=== PATIENT | male | born 1995 | race Caucasian/White ===

== ENCOUNTER 2017-02-05 14:14 | Emergency (ER) | payer SELFPAY ==
[2017-02-05 14:48] VITALS: BP 149/80
--- NOTE | 2017-02-05 15:25 | UC ---
Eye Complaint HPI - HPI Summary HPI Summary: The patient comes in today for: 1. Left eye swelling: Onset: One week. Palliative/provocative: Touching the lower eye lid makes the pain worse. Quality: Ache Region: Left lower eye lid. Severity: 5/10 Time: Constant. Associated symptoms: Event: He woke up one morning (about one week ago) and the bottom eye lid was painful. He did not do anything for it at that time. For the following 5 days, it remained red and tender but not particularly swollen. Then one day he woke up and the lower lid was swollen and red. It started to drain today. Previous treatment: He was seen two days ago in the [facility] ER. He was put on erythromycin eye ointment (he states that the tube had a big air bubble in it and hardly ant medication). He has been taking the Bactrim DS pill twice a day. Fevers: None Vision: "Fuzzy." Discharge: Green and yellow. He states that the redness and swelling was not that bad when he was in [facility]. But, it got worse overnight. * - History of Current Complaint Chief Complaint: UCEye Stated Complaint: LT EYE SWEELING/PAIN Time Seen by Provider: 02/05/17 15:05 Hx Obtained From: Patient - Allergies/Home Medications Allergies/Adverse Reactions: Allergies Allergy/AdvReac Type Severity Reaction Status Date / Time No Known Allergies Allergy Verified 02/05/17 14:48 Home Medications: Home Medications NK [No Home Medications Reported] 02/05/17 [History Confirmed 02/05/17] PMH/Surg Hx/FS Hx/Imm Hx Previously Healthy: No Endocrine History Of: Denies: Diabetes, Thyroid Disease, Hyperthyroidism, Hypothyroidism, Dyslipidemia Cardiovascular History Of: Reports: Cardiac Disorders - heart murmur, Hypertension - He states that he went to see a specialist who did not put him on any Rx. Denies: Pacemaker/ICD, Myocardial Infarction, Congestive Heart Failure, Atrial Fibrillation, Deep Vein Thrombosis, Bleeding Disorders Respiratory History Of: Denies: COPD, Asthma, Bronchitis, Pneumonia, Pulmonary Embolism GI/ History Of: Denies: Gastroesophageal Reflux, Ulcer, Gastrointestinal Bleed, Gall Bladder Disease, Kidney Stones, Diverticulitis, Renal Disease, Urosepsis Neurological History Of: Denies: TIA, CVA, Dementia, Seizures, Migraine Psychological History Of: Denies: Anxiety, Depression, Bipolar Disorder, Schizophrenia, Post Traumatic Stress Disorder Cancer History Of: Denies: Lung Cancer, Colorectal Cancer, Breast Cancer, Prostate Cancer, Cervical Cancer Other History Of: Negative For: HIV, Hepatitis B, Hepatitis C, Anticoagulant Therapy - Surgical History Surgical History: None - Family History Known Family History: Positive: Hypertension Negative: Cardiac Disease - Social History Occupation: Employed Full-time Alcohol Use: None Alcohol Amount: once a month Substance Use Type: None Substance Use Comment - Amount & Last Used: 3-4 times weekly Smoking Status (MU): Current Every Day Smoker Type: Cigarettes Amount Used/How Often: 1/3 ppd Length of Time of Smoking/Using Tobacco: 9 years Have You Smoked in the Last Year: Yes Review of Systems Constitutional: Negative Skin: Negative Eyes: Drainage, Eye Redness ENT: Negative Respiratory: Negative Cardiovascular: Negative Gastrointestinal: Negative Genitourinary: Negative All Other Systems Reviewed And Are Negative: Yes Physical Exam Triage Information Reviewed: Yes Appearance: Well-Appearing, No Pain Distress - When his eye lid is not touched. , Obese Vital Signs: Initial Vital Signs Temp 98.5 F 02/05/17 14:46 Pulse 91 02/05/17 14:46 Resp 14 02/05/17 14:46 BP 149/80 02/05/17 14:46 Pulse Ox 98 02/05/17 14:46 Vital Signs Reviewed: Yes Eyes: Positive: Conjunctiva Clear - On the right, left is red, Discharge - From the left eye. There is purulent material matted on the eye lids. There is redness and swelling. When I press on the skin above and below the eye to pull the eye lids apart, he is not able to tolerate this and pulls away. The redness and swelling is limited to the lower eye lid, but touching the non- erythematous and non-swollen skin below the eye is tender. ENT: Positive: Hearing grossly normal. Negative: Pharyngeal erythema, Nasal congestion, Nasal drainage, TM bulging, TM dull, TM red, Tonsillar swelling, Tonsillar exudate Dental: Negative: Gross Decay/Caries @, Dental Fracture @ Neck: Positive: Supple, Nontender, No Lymphadenopathy. Negative: Nuchal Rigidity Respiratory: Positive: Chest non-tender, Lungs clear, No respiratory distress, No accessory muscle use. Negative: Crackles, Wheezing Cardiovascular: Positive: RRR, No Murmur Abdomen Description: Positive: Nontender, No Organomegaly, Soft. Negative: Distended, Guarding Musculoskeletal: Positive: Strength Intact, ROM Intact Neurological: Positive: Alert, Muscle Tone Normal Psychological: Positive: Age Appropriate Behavior, Consolable Skin: Positive: rashes - Left lower eye lid swelling, redness and purulent discharge. Eye Complaint Course/Dx - Course Course Of Treatment: The case was discussed with Dr. Mello's office ( public health microbiologist). He is to go right over. - Differential Dx/Diagnosis Provider Diagnoses: Left hordeolum with spread to lid cellulitis (not responding to Bactrim) Discharge - Discharge Plan Condition: Stable Disposition: HOME Patient Education Materials: Stye (ED), Cellulitis (ED) Forms: *Work Release Referrals: No Primary Care Phys,NOPCP [Primary Care Provider] -
== END 2017-02-05 15:53 | disposition home or self-care (01) ==
LOC: UCCORT 14:14
DX: H00.015 Hordeolum externum left lower eyelid (principal); H00.035 Abscess of left lower eyelid; R01.1 Cardiac murmur, unspecified; I10 Essential (primary) hypertension; E66.9 Obesity, unspecified; F17.210 Nicotine dependence, cigarettes, uncomplicated
CPT/HCPCS: 99212; G0463

== ENCOUNTER 2017-03-03 10:00 | Emergency (ER) | payer OTHER ==
[2017-03-03 10:06] VITALS: BP 162/82
[2017-03-03] MEDS ORDERED: NS 0.9% 1000 ML* 1,000 ML IV ONE (11:04)
--- NOTE | 2017-03-03 11:39 | RAD ---
INDICATION: Cough. Short of breath COMPARISON: None TECHNIQUE: PA and lateral dual-energy views were obtained. FINDINGS: Bones/Soft Tissues: There are no acute bony findings. Cardiomediastinal: The cardiomediastinal silhouette is normal. Lungs: There are no infiltrates. Pleura: There are no pleural effusions. Other: None IMPRESSION: NEGATIVE EXAMINATION.
[2017-03-03 12:48] LABS: Hematocrit 43 % (42-52); Hemoglobin 14.6 g/dl (14.0-18.0); Mean Corpuscular HGB Conc 34 g/dl (31-36); Mean Corpuscular Hemoglobin 29 pg (27-31); Mean Corpuscular Volume 87 fL (80-94); Mean Platelet Volume 9 um3 (7.4-10.4); Red Blood Count 4.96 10^6/ul (4.0-5.4); Red Cell Distribution Width 13 % (10.5-15); White Blood Count 9.5 10^3/ul (3.5-10.8)
[2017-03-03 13:10] LABS: Albumin 4.4 g/dL (3.2-5.2); BUN/Creatinine Ratio 15.5 (8-20); C Reactive Protein 3.95 mg/L (< 5.00); Calcium 9.2 mg/dL (8.6-10.3); EGFR African American 175.3 (>60); EGFR Non-African American 136.3 (>60); Globulin 2.9 g/dL (2-4); Potassium 3.8 mmol/L (3.5-5.0); Total Bilirubin 0.4 mg/dL (0.2-1.0); Total Protein 7.3 g/dL (6.4-8.9)
--- NOTE | 2017-03-03 16:47 | ED ---
Drea Wei Auryana, scribed for Heron Rascon MD on 03/03/17 at 1349 . HPI Cardiac - HPI Summary HPI Summary: 22 year old male presents with blood in sputum since this morning - believes it is bronchitis. He denies fever, chills, chest pain, or any diarrhea. No history of bronchitis. PMHx is significant for a heart murmur but denies any surgeries. SHx is significant for tobacco ad marijuana use but denies any alcohol use. - History of Current Complaint Chief Complaint: EDUpperRespComplaint Stated Complaint: COUGHING UP BLOOD Time Seen by Provider: 03/03/17 11:04 Hx Obtained From: Patient Onset/Duration: Started Hours Ago - THIS MORNING, Still Present Timing: Constant Current Severity: None Pain Intensity: 0 - NO PAIN Pain Scale Used: 0-10 Numeric Associated Signs and Symptoms: Positive: Negative. Negative: Chest Pain, Fever , Chills Related History: Similar Episode/Dx as: - NO HISTORY OF BRONCHITIS - Allergy/Home Medications Allergies/Adverse Reactions: Allergies Allergy/AdvReac Type Severity Reaction Status Date / Time No Known Allergies Allergy Verified 02/05/17 14:48 PMH/Surg Hx/FS Hx/Imm Hx Endocrine/Hematology History: Denies: Hx Anticoagulant Therapy, Hx Diabetes, Hx Thyroid Disease Cardiovascular History: Reports: Hx Hypertension Denies: Hx Congestive Heart Failure, Hx Deep Vein Thrombosis, Hx Myocardial Infarction, Hx Pacemaker/ICD Respiratory History: Denies: Hx Asthma, Hx Chronic Obstructive Pulmonary Disease (COPD), Hx Lung Cancer, Hx Pneumonia, Hx Pulmonary Embolism GI History: Denies: Hx Gall Bladder Disease, Hx Gastrointestinal Bleed, Hx Ulcer, Hx Urosepsis History: Denies: Hx Kidney Stones, Hx Renal Disease Neurological History: Denies: Hx Dementia, Hx Migraine, Hx Seizures, Hx Transient Ischemic Attacks (TIA) Psychiatric History: Denies: Hx Anxiety, Hx Depression, Hx Schizophrenia, Hx Bipolar Disorder Infectious Disease History: No Infectious Disease History: Denies: Hx Clostridium Difficile, Hx Hepatitis, Hx Human Immunodeficiency Virus (HIV), Hx of Known/Suspected MRSA, Hx Shingles, Hx Tuberculosis, Hx Known/ Suspected VRE, Hx Known/Suspected VRSA, History Other Infectious Disease, Traveled Outside the [place] in Last 30 Days - Family History Known Family History: Positive: Hypertension Negative: Cardiac Disease - Social History Alcohol Use: None Alcohol Amount: once a month Substance Use Type: Reports: None Substance Use Comment - Amount & Last Used: 3-4 times weekly Smoking Status (MU): Current Every Day Smoker Type: Cigarettes Amount Used/How Often: 1/3 ppd Length of Time of Smoking/Using Tobacco: 9 years Have You Smoked in the Last Year: Yes Review of Systems Constitutional: Negative Negative: Fever, Chills Eyes: Negative ENT: Negative Cardiovascular: Negative Negative: Chest Pain Positive: Cough - PRODUCTIVE WITH BLOOD Gastrointestinal: Negative Negative: Diarrhea Genitourinary: Negative Musculoskeletal: Negative Skin: Negative Neurological: Negative Psychological: Normal All Other Systems Reviewed And Are Negative: Yes Physical Exam - Summary Physical Exam Summary: VITAL SIGNS: Reviewed. GENERAL: Patient is a well developed and obese male who is lying comfortable in the stretcher. Patient is not in any acute respiratory distress. HEAD AND FACE: No signs of trauma. No ecchymosis, hematomas or skull depressions. No sinus tenderness. EYES: PERRLA, EOMI x 2, No injected conjunctiva, no nystagmus. EARS: Hearing grossly intact. Ear canals and tympanic membranes are within normal limits. MOUTH: Oropharynx within normal limits. NECK: Supple, trachea is midline, no adenopathy, no JVD, no carotid bruit, no c- spine tenderness, neck with full ROM. CHEST: Symmetric, no tenderness at palpation LUNGS: Clear to auscultation bilaterally. No wheezing or crackles. CVS: Regular rate and rhythm, S1 and S2 present, no murmurs or gallops appreciated. ABDOMEN: Soft, non-tender. No signs of distention. No rebound no guarding, and no masses palpated. Bowel sounds are normal. EXTREMITIES: FROM in all major joints, no edema, no cyanosis or clubbing. NEURO: Alert and oriented x 3. No acute neurological deficits. Speech is normal and follows commands. SKIN: Dry and warm Triage Information Reviewed: Yes Vital Signs On Initial Exam: Initial Vitals Temp Pulse Resp BP Pulse Ox 97.3 F 59 20 171/93 98 03/03/17 10:02 03/03/17 10:02 03/03/17 10:02 03/03/17 10:02 03/03/17 10:02 Vital Signs Reviewed: Yes Diagnostics - Vital Signs Vital Signs Temp Pulse Resp BP Pulse Ox 03/03/17 10:04 97.8 F 62 16 162/82 98 03/03/17 10:02 97.3 F 59 20 171/93 98 - Laboratory Lab Results: Lab Results 03/03/17 03/03/17 03/03/17 Range/Units 12:25 12:25 12:25 WBC 9.5 (3.5-10.8) 10^3/ul RBC 4.96 (4.0-5.4) 10^6/ul Hgb 14.6 (14.0-18.0) g/dl Hct 43 (42-52) % MCV 87 (80-94) fL MCH 29 (27-31) pg MCHC 34 (31-36) g/dl RDW 13 (10.5-15) % Plt Count 296 (150-450) 10^3/ul MPV 9 (7.4-10.4) um3 Neut % (Auto) 54.4 (38-83) % Lymph % (Auto) 33.1 (25-47) % Washburn % (Auto) 8.0 (1-9) % Eos % (Auto) 4.0 (0-6) % Baso % (Auto) 0.5 (0-2) % Absolute Neuts (auto) 5.2 (1.5-7.7) 10^3/ul Absolute Lymphs (auto) 3.2 (1.0-4.8) 10^3/ul Absolute Monos (auto) 0.8 (0-0.8) 10^3/ul Absolute Eos (auto) 0.4 (0-0.6) 10^3/ul Absolute Basos (auto) 0.1 (0-0.2) 10^3/ul Absolute Nucleated RBC 0 10^3/ul Nucleated RBC % 0 Sodium 139 (133-145) mmol/L Potassium 3.8 (3.5-5.0) mmol/L Chloride 104 (101-111) mmol/L Carbon Dioxide 25 (22-32) mmol/L Anion Gap 10 (2-11) mmol/L BUN 11 (6-24) mg/dL Creatinine 0.71 (0.67-1.17) mg/dL Est GFR ( Amer) 175.3 (>60) Est GFR (Non-Af Amer) 136.3 (>60) BUN/Creatinine Ratio 15.5 (8-20) Glucose 92 (70-100) mg/dL Lactic Acid 1.3 (0.5-2.0) mmol/L Calcium 9.2 (8.6-10.3) mg/dL Total Bilirubin 0.40 (0.2-1.0) mg/dL AST 16 (13-39) U/L ALT 23 (7-52) U/L Alkaline Phosphatase 78 (34-104) U/L Troponin I 0.00 (<0.04) ng/mL C-Reactive Protein 3.95 (< 5.00) mg/L B-Natriuretic Peptide ( - 100) pg/mL Total Protein 7.3 (6.4-8.9) g/dL Albumin 4.4 (3.2-5.2) g/dL Globulin 2.9 (2-4) g/dL Albumin/Globulin Ratio 1.5 (1-3) 05/22/17 Range/Units 12:25 WBC (3.5-10.8) 10^3/ul RBC (4.0-5.4) 10^6/ul Hgb (14.0-18.0) g/dl Hct (42-52) % MCV (80-94) fL MCH (27-31) pg MCHC (31-36) g/dl RDW (10.5-15) % Plt Count (150-450) 10^3/ul MPV (7.4-10.4) um3 Neut % (Auto) (38-83) % Lymph % (Auto) (25-47) % Washburn % (Auto) (1-9) % Eos % (Auto) (0-6) % Baso % (Auto) (0-2) % Absolute Neuts (auto) (1.5-7.7) 10^3/ul Absolute Lymphs (auto) (1.0-4.8) 10^3/ul Absolute Monos (auto) (0-0.8) 10^3/ul Absolute Eos (auto) (0-0.6) 10^3/ul Absolute Basos (auto) (0-0.2) 10^3/ul Absolute Nucleated RBC 10^3/ul Nucleated RBC % Sodium (133-145) mmol/L Potassium (3.5-5.0) mmol/L Chloride (101-111) mmol/L Carbon Dioxide (22-32) mmol/L Anion Gap (2-11) mmol/L BUN (6-24) mg/dL Creatinine (0.67-1.17) mg/dL Est GFR ( Amer) (>60) Est GFR (Non-Af Amer) (>60) BUN/Creatinine Ratio (8-20) Glucose (70-100) mg/dL Lactic Acid (0.5-2.0) mmol/L Calcium (8.6-10.3) mg/dL Total Bilirubin (0.2-1.0) mg/dL AST (13-39) U/L ALT (7-52) U/L Alkaline Phosphatase (34-104) U/L Troponin I (<0.04) ng/mL C-Reactive Protein (< 5.00) mg/L B-Natriuretic Peptide 16 ( - 100) pg/mL Total Protein (6.4-8.9) g/dL Albumin (3.2-5.2) g/dL Globulin (2-4) g/dL Albumin/Globulin Ratio (1-3) Result Diagrams: 03/03/17 12:25 03/03/17 12:25 Lab Statement: Any lab studies that have been ordered have been reviewed, and results considered in the medical decision making process. - Radiology CXR Xray Interpretation: No Acute Changes Radiology Interpretation Completed By: Radiologist Re-Evaluation - Re-Evaluation First Eval Re-Evaluation Time: 13:48 - DISCUSSED RESULTS OF CXR AND LABS Disposition - Course Assessment/Plan: 22 year old male presents with blood in sputum since this morning - believes it is bronchitis. He denies fever, chills, chest pain, or any diarrhea. No history of bronchitis. PMHx is significant for a heart murmur but denies any surgeries. SHx is significant for tobacco and marijuana use but denies any alcohol use. Blood test are found within normal limits. CXR IMPRESSION: NEGATIVE EXAMINATION. In the ED course he was given IV fluids and his symptoms improved. He was observed in the ED for a couple hours and he did not have any cough. Or hemoptysis. He is hemodynamically stable and alert and oriented x 3. He request a 2 days from work. I believe he has a URI or viral bronchitis. He was recommended to treated symptomatically. I discussed all the findings and test results with the patient and patients parents. They were instructed to return to the emergency room immediately if any of the symptoms return or worsens. They understand and agree. Plan of care was discussed with the patient and patients parents they understands and agrees. All questions were answered at patient satisfaction. There were no further complaints or concerns. Lung exam before discharge: CTA B/L. Good air exchange. No wheezing or crackles heard. CVS: S1 and S2 present. No murmurs appreciated. Patient is alert and oriented x 3. Patient is hemodynamically stable. Patient will be discharged home with follow up shirt sewer in the next 2-3 days - Differential Dx - Cardiopulmonary Differential Diagnoses - Cardiopulmonary: Asthma, Bronchitis - Pneumonia, URI - Diagnoses Provider Diagnoses: Viral bronchitis Discharge - Discharge Plan Condition: Stable Disposition: HOME Patient Education Materials: Acute Bronchitis (ED) Forms: *Work Release Referrals: Francine Putnam MD [Primary Care Provider] - 3 Days The documentation as recorded by the Drea narayanan Auryana accurately reflects the service I personally performed and the decisions made by Abiodun lala Walter, MD.
== END 2017-03-03 14:05 | disposition home or self-care (01) ==
LOC: ED 10:00
DX: J20.8 Acute bronchitis due to other specified organisms (principal); F17.210 Nicotine dependence, cigarettes, uncomplicated
CPT/HCPCS: 36415; 71020; 80053; 83605; 83880; 84484; 85025; 86140; 87040; 96360; 99282

== ENCOUNTER 2017-05-05 08:14 | Emergency (ER) | payer OTHER ==
[2017-05-05 08:29] VITALS: BP 148/80
--- NOTE | 2017-05-05 10:38 | UC ---
aggie Wei Timothy, scribed for Maryjane Davidson DO on 05/05/17 at 0837 . Skin Complaint HPI - HPI Summary HPI Summary: Arsen Moran is a 22 yo male presenting to [facility] with a self-diagnosed "MRSA spot " on the back of his neck, worsening for the past week. Per triage, he has a reddened area on the back of his head causing 6/10 pain. He states his entire back hurts due to the spot as well, which is worse with movement. Lying down appears tomake the pain worse. He has a Hx of MRSA 6 months ago, and possible undiagnosed MRSA 3 months ago. He deneis fever, chills, diaphoresis, CP, SOB, N/ V. he notes mild sore throat, but believes this is due to allergies. His MHx includes heart murmur, HTN, MRSA 6 months ago, tobacco use. - History of Current Complaint Time Seen by Provider: 05/05/17 08:34 Stated Complaint: SKIN COMPLAINT Hx Obtained From: Patient Onset/Duration: Sudden Onset, Lasting Days, Still Present, Worse Since - now Skin Exposure Onset/Duration: Days Ago Timing: Constant Onset Severity: Moderate Current Severity: Moderate Pain Intensity: 6 Pain Scale Used: 0-10 Numeric Location: Discrete - back of neck Character: Pain, Redness Aggravating: Other - laying down Associated Signs & Symptoms: Positive: Rash. Negative: Nausea, Vomiting, Diaphoresis, Difficulty Breathing, Fever, Chills, Chest Pain - Allergy/Home Medications Allergies/Adverse Reactions: Allergies Allergy/AdvReac Type Severity Reaction Status Date / Time No Known Allergies Allergy Verified 05/05/17 08:22 Review of Systems Constitutional: Negative Skin: Rash - red spot back of neck Eyes: Negative ENT: Sore Throat Respiratory: Negative Cardiovascular: Negative Gastrointestinal: Negative Genitourinary: Negative Motor: Negative Neurovascular: Negative Musculoskeletal: Other: - back pain Neurological: Negative Psychological: Negative All Other Systems Reviewed And Are Negative: Yes PMH/Surg Hx/FS Hx/Imm Hx Cardiovascular History: Hypertension, Other Other Cardiovascular History: murmur Other History Of: Negative For: HIV, Hepatitis B, Hepatitis C, Anticoagulant Therapy - Surgical History Surgical History: None - Family History Known Family History: Positive: Hypertension, Other - CA Negative: Cardiac Disease - Social History Alcohol Use: None Alcohol Amount: once a month Substance Use Type: None Substance Use Comment - Amount & Last Used: 3-4 times weekly Smoking Status (MU): Current Every Day Smoker Type: Cigarettes Amount Used/How Often: 1/3 ppd Length of Time of Smoking/Using Tobacco: 9 years Have You Smoked in the Last Year: Yes Cessation Counseling: Patient Advised to Stop Physical Exam Triage Information Reviewed: Yes Appearance: Well-Appearing, No Pain Distress, Obese Vital Signs: Initial Vital Signs Temp 97.7 F 05/05/17 08:18 Pulse 69 05/05/17 08:18 Resp 18 05/05/17 08:18 BP 184/101 05/05/17 08:18 Pulse Ox 98 05/05/17 08:18 Vital Signs Reviewed: Yes Eyes: Positive: Conjunctiva Clear. Negative: Discharge ENT: Positive: Hearing grossly normal. Negative: Muffled/hoarse voice Neck: Positive: Supple, Nontender Respiratory: Positive: Lungs clear, Normal breath sounds, No respiratory distress Cardiovascular: Positive: RRR, No Murmur Musculoskeletal: Positive: Strength Intact, ROM Intact Neurological: Positive: Alert, Muscle Tone Normal, Other: - A&Ox3, CN II-XII INTACT, SENSORY MOTOR INTACT, REFLEXES INTACT, NO CEREBELLAR SIGNS, FACIAL SYMMETRY, NEGATIVE ROMBERG, NORMAL GAIT, negative kernig's and brudzinsky's Psychological: Positive: Other: - flat affect Skin: Positive: Other - 1x2cm erythematous tender area on the back of neck with a number of inflamed follicles noted. Dark discoloration of the skin in a ring- like configuration - acanthosis nigricans. Course/Dx - Course Course Of Treatment: Arsen Moran is a 22 yo male presenting to [facility] with a red spot on the back of his neck, claiming it is MRSA. Pt medication list reviewed this visit. PT high BP noted at 184/101, retaken at 148/80. Pt counseled to quit smoking, but declines cessation information. Pt counseled that he may be at risk for DM given what appears to be acanthosis nigricans, and was counseled to make the necessary lifestyle choices and to follow up with his primary care physician and a server software engineer reagrding this. After clinical examination, he will be discharged home with folliculitis with appropriate instructions and follow up. - Differential Diagnoses - Skin Complaint Differential Diagnoses: Abscess, MRSA, Other - folliculitis - Diagnoses Provider Diagnoses: follicultitis Discharge - Discharge Plan Condition: Stable Disposition: HOME Prescriptions: Cyclobenzaprine TAB* [Flexeril TAB*] 10 mg PO TID PRN #30 tab PRN Reason: Pain Naproxen TAB* [Naprosyn 250 mg TAB*] 500 mg PO BID PRN #14 tab PRN Reason: Pain Sulfamethox/Trimethoprim DS* [Bactrim DS 800/160 TAB*] 1 tab PO BID #20 tab Patient Education Materials: Folliculitis (ED), Warm Compress or Soak (ED), Low Back Strain (ED) Forms: *Work Release Referrals: Jim Cesar NP [Nurse Practitioner] - 2 Days (Follow up in 2 days for re- evaluation. This follow up visit is important, we want to know that you are improving. If you can not get in with your PCP, return here for re-evaluation. ) Additional Instructions: ANTIBIOTIC THERAPY: You have been given an antibiotic prescription. It's important that you take all the medication, unless instructed otherwise by your physician. Failure to complete the entire course can result in relapse of your condition. Common side effects of antibiotics include nausea, intestinal cramping, or diarrhea. Women may develop vaginal yeast infections, and babies can get yeast (thrush) in the mouth following the use of antibiotics. Contact your physician if you develop significant side effects from this medication. Allergy to this antibiotic can result in hives, wheezing, faintness, or itching. If symptoms of allergy occur, stop the medication and call the doctor. ANYTIME YOU TAKE AN ANTIBIOTIC, IT IS IMPORTANT TO REPLENISH THE BODY'D SUPPLY OF "GOOD BACTERIA." YOU CAN GET GOOD BACTERIA FROM HIGH QUALITY CULTURED FOODS SUCH LOCAL YOGURT, SOUR KRAUT, JO ANN LUCIUS, NATURALLY FERMENTED PICKLES AND PROBIOTIC DRINKS. YOU CAN ALSO GET GOOD BACTERIA FROM A PROBIOTIC SUPPLEMENT. MUSCLE RELAXERS: Muscle relaxing medications are usually prescribed for acute muscle spasm or injury to the neck and back. They are often combined with antiinflammatory pain medication for increased relief. You may stop the muscle relaxer when the pain and stiffness have improved. Start the medication again if spasms recur. Muscle relaxers may cause drowsiness, especially with the first dose. Do not operate machinery or drive while under the effects of the medication. Most muscle relaxers last up to 24 hours. Do not combine the medication with alcohol. ANTI-INFLAMMATORY MEDICATION: You have received a prescription for an antiinflammatory agent. This is an excellent, safe drug for pain control. In addition, it has potent antiinflammatory effects which are beneficial, especially in the treatment of injuries, arthritis, or tendonitis. It's best to take this medicine with food. Persons with ulcer disease or allergy to aspirin should notify their physician of this before taking this drug. Take the medication exactly as prescribed. Don't take additional doses unless instructed to do so by your doctor. If you develop wheezing, shortness of breath, hives, faintness, stomach pain, vomiting, or dark black stools, return for re-evaluation at once. Your blood pressure today was 148/80, which is high for your age group. Please check your blood pressure twice per day for the next two weeks. Please follow up with your primary care physician regarding your symptoms and blood pressure at urgent care today. Return to urgent care or the emergency department with any new or recurring symptoms, notably fever, nausea, or vomiting. The documentation as recorded by the aggie narayanan Timothy accurately reflects the service I personally performed and the decisions made by me, Maryjane Davidson DO.
== END 2017-05-05 09:24 | disposition home or self-care (01) ==
LOC: UCEAST 08:14
DX: L73.9 Follicular disorder, unspecified (principal); R01.1 Cardiac murmur, unspecified; I10 Essential (primary) hypertension; F17.210 Nicotine dependence, cigarettes, uncomplicated; Z86.14 Personal history of Methicillin resistant Staphylococcus aureus infection
CPT/HCPCS: 99212; G0463

== ENCOUNTER 2017-06-11 11:34 | Emergency (ER) | payer OTHER ==
[2017-06-11 11:54] VITALS: BP 144/92
--- NOTE | 2017-06-11 12:15 | UC ---
Eye Complaint HPI - HPI Summary HPI Summary: LEFT EYE LIDS SWOLLEN AND RED SINCE YESTERDAY. NO PAIN WITH MOVEMENT OF EYE. HISTORY OF MRSA. NO DRAINAGE FROM LIDS. TODAY HAD CRUSTY DRAINAGE FROM LEFT EYE. - History of Current Complaint Chief Complaint: UCSkin Stated Complaint: LEFT EYE COMPLAINT Time Seen by Provider: 06/11/17 11:38 Hx Obtained From: Patient Onset/Duration: Gradual Onset, Lasting Days, Still Present Timing: Constant Severity Initially: Mild Severity Currently: Moderate Location of Injury: Eye Lid (lower), Eye Lid (upper) - MEDIAL CANTHUS UPPER > LOWER Aggravating Factor(s): Nothing Alleviating Factor(s): Nothing Associated Signs And Symptoms: Positive: Drainage (Purulent), Swelling - MEDIAL CANTHUS OF LEFT EYE. Negative: Fever - Risk Factors Penetrating Injury Risk Factor: Negative Globe Rupture Risk Factors: Negative Acute Glaucoma Risk Factors: Negative Optic Artery Occlusion Risk Factors: Negative - Allergies/Home Medications Allergies/Adverse Reactions: Allergies Allergy/AdvReac Type Severity Reaction Status Date / Time rhino sinusitis Allergy Congestion Uncoded 06/11/17 11:55 PMH/Surg Hx/FS Hx/Imm Hx Previously Healthy: Yes Other History Of: Negative For: HIV, Hepatitis B, Hepatitis C, Anticoagulant Therapy - Surgical History Surgical History: None - Family History Known Family History: Positive: Hypertension, Other - [place] Negative: Cardiac Disease - Social History Occupation: Employed Full-time Lives: With Family Alcohol Use: Rare Alcohol Amount: once a month Substance Use Type: Marijuana Substance Use Comment - Amount & Last Used: December 2016 Smoking Status (MU): Current Some Day Smoker Type: Cigarettes, eCigarettes Amount Used/How Often: 1/3 ppd Length of Time of Smoking/Using Tobacco: 9 years Have You Smoked in the Last Year: Yes Cessation Counseling: Patient Advised to Stop - IN PROCESS OF QUITTING CURRENTLY Review of Systems Constitutional: Negative Skin: Negative Eyes: Drainage, Other - MEDIAL BILATERAL EYELIS SWELLING ERYTHEMA ENT: Negative Respiratory: Negative Cardiovascular: Negative Gastrointestinal: Negative Genitourinary: Negative Motor: Negative Neurovascular: Negative Musculoskeletal: Negative Neurological: Negative Psychological: Negative All Other Systems Reviewed And Are Negative: Yes Physical Exam Triage Information Reviewed: Yes Appearance: Well-Appearing, No Pain Distress, Well-Nourished Vital Signs: Initial Vital Signs Temp 98.3 F 06/11/17 11:44 Pulse 82 06/11/17 11:44 Resp 18 06/11/17 11:44 BP 144/92 06/11/17 11:44 Eyes: Positive: Discharge, Other: - BILATERAL EYELIDS ERYTHEMA AND EDEMA NEAR CANTHUS; NO PAIN WITH EYEMOVEMENT, TENDER ONLY AT SITE OF INFECTION, NO DRAINAGE ENT Exam: Normal ENT: Positive: Normal ENT inspection, Pharynx normal, TMs normal Dental Exam: Normal Neck exam: Normal Neck: Positive: Supple, Nontender, No Lymphadenopathy Respiratory Exam: Normal Respiratory: Positive: Chest non-tender, Lungs clear, Normal breath sounds Cardiovascular Exam: Normal Cardiovascular: Positive: RRR, No Murmur, Pulses Normal Abdominal Exam: Normal Musculoskeletal Exam: Normal Neurological Exam: Normal Psychological Exam: Normal Skin Exam: Normal Eye Complaint Course/Dx - Differential Dx/Diagnosis Differential Diagnosis/HQI/PQRI: Conjunctivitis Provider Diagnoses: LEFT STYE, MRSA, LEFT CONJUNCTIVITIS Discharge - Discharge Plan Condition: Stable Disposition: HOME Prescriptions: DOXYcycline CAP(*) [DOXYcycline 100MG CAP(*)] 100 mg PO BID #20 cap Tobramycin 0.3% OPHTH.VIVIAN* 3 drop LEFT EYE Q4H #1 btl Patient Education Materials: MRSA (Methicillin-Resistant Staphylococcus Aureus ) (ED), Stye (ED), Conjunctivitis (ED) Forms: *Work Release Referrals: Francine Putnam MD [Primary Care Provider] -
== END 2017-06-11 12:13 | disposition home or self-care (01) ==
LOC: UCCORT 11:34
DX: H02.89 Other specified disorders of eyelid (principal); H00.016 Hordeolum externum left eye, unspecified eyelid; A49.02 Methicillin resistant Staphylococcus aureus infection, unspecified site
CPT/HCPCS: 99212; G0463

== ENCOUNTER 2019-02-01 07:10 | Emergency (ER) | payer SELFPAY ==
[2019-02-01 07:24] VITALS: BP 177/93
--- NOTE | 2019-02-01 07:49 | UC ---
Rectal Pain HPI - HPI Summary HPI Summary: 24-year-old male comes in with a chief complaint of anal pain with a swollen hemorrhoid on the left side. Patient's had the swelling in this area for months over the last several weeks it's gotten more painful and swollen. Painful when he attempts to have a bowel movement or if he touches it or sits down. No fevers or chills. - History Of Current Complaint Chief Complaint: UCGI Stated Complaint: PERSONAL Time Seen by Provider: 02/01/19 07:34 Pain Intensity: 8 - Allergies/Home Medications Allergies/Adverse Reactions: Allergies Allergy/AdvReac Type Severity Reaction Status Date / Time rhino sinusitis Allergy Congestion Uncoded 02/01/19 07:24 PMH/Surg Hx/FS Hx/Imm Hx Previously Healthy: Yes Other History Of: Negative For: HIV, Hepatitis B, Hepatitis C, Anticoagulant Therapy - Surgical History Surgical History: None - Family History Known Family History: Positive: Hypertension, Other - [place] Negative: Cardiac Disease - Social History Alcohol Use: Rare Alcohol Amount: once a month Substance Use Type: Marijuana Substance Use Comment - Amount & Last Used: December 2016 Smoking Status (MU): Current Some Day Smoker Type: Cigarettes, eCigarettes Amount Used/How Often: 1/3 ppd Length of Time of Smoking/Using Tobacco: 9 years Have You Smoked in the Last Year: Yes Review of Systems All Other Systems Reviewed And Are Negative: Yes Constitutional: Positive: Negative Skin: Positive: Negative Eyes: Positive: Negative ENT: Positive: Negative Respiratory: Positive: Negative Cardiovascular: Positive: Negative Gastrointestinal: Positive: Other - SEE HPI Genitourinary: Positive: Negative Motor: Positive: Negative Neurovascular: Positive: Negative Musculoskeletal: Positive: Negative Neurological: Positive: Negative Psychological: Positive: Negative Is Patient Immunocompromised?: No Physical Exam Triage Information Reviewed: Yes Appearance: Well-Appearing, Well-Nourished, Pain Distress - MILD WITH SITTING Vital Signs: Initial Vital Signs Temp 96.6 F 02/01/19 07:17 Pulse 67 02/01/19 07:17 Resp 19 02/01/19 07:17 BP 177/93 02/01/19 07:17 Pulse Ox 76 02/01/19 07:17 Vital Signs Reviewed: Yes Eye Exam: Normal Eyes: Positive: Conjunctiva Clear Neck: Positive: Supple Respiratory: Positive: No respiratory distress Musculoskeletal Exam: Normal Musculoskeletal: Positive: Strength Intact, ROM Intact Neurological Exam: Normal Neurological: Positive: Alert, Muscle Tone Normal Psychological Exam: Normal Psychological: Positive: Age Appropriate Behavior Skin: Positive: Other - 1CM FIRM SWELLING LEFT SIDE OF ANUS [id number] WITH A THROMBOSED HEMORRHOID Rectal Pain Course/Dx - Course Course Of Treatment: Sx treatment and F/U with Surgery. - Differential Dx/Diagnosis Provider Diagnosis: External hemorrhoid, thrombosed Discharge - Sign-Out/Discharge Documenting (check all that apply): Patient Departure All imaging exams completed and their final reports reviewed: No Studies - Discharge Plan Condition: Stable Disposition: HOME Prescriptions: Benzocaine [Americaine] 1 applic TOPICAL Q3HR PRN #28 gm PRN Reason: Pain Hydrocortisone Acetate [Anucort-Hc] 25 mg [place] BID PRN #30 sup PRN Reason: Pain Patient Education Materials: Hemorrhoids (ED) Forms: *Work Release Referrals: Francine Putnam MD [Primary Care Provider] - Juanito Johnson MD [Medical Doctor] - Additional Instructions: FOLLOW UP WITH SURGERY, DR JOHNSON, FOR YOUR THROMBOSED EXTERNAL HEMORRHOID. GET REEVALUATED SOONER IF YOUR CONDITION WORSENS OR ANY QUESTIONS OR CONCERNS. - Billing Disposition and Condition Condition: STABLE Disposition: Home
== END 2019-02-01 07:53 | disposition home or self-care (01) ==
LOC: UCEAST 07:10
DX: K64.5 Perianal venous thrombosis (principal); Z72.0 Tobacco use
CPT/HCPCS: 99212; G0463

== ENCOUNTER 2021-12-28 15:52 | Inpatient (IN) ==
[2021-12-28 16:46] LABS: ABS Basophils 0.1 10^3/ul (0-0.2); ABS Eosinophils 0.1 10^3/ul (0-0.6); ABS Lymphocytes 1.9 10^3/ul (1.0-4.8); ABS Monocytes 0.9 10^3/ul (0-0.8); ABS Neutrophils 9.7 10^3/ul (1.5-7.7); Eosinophil % 0.6 %; Hematocrit 43 % (42-52); Hemoglobin 14.7 g/dL (14.0-18.0); Lymphocyte % 15.3 %; Mean Corpuscular HGB Conc 35 g/dL (31-36); Mean Corpuscular Hemoglobin 30 pg (27-31); Mean Corpuscular Volume 88 fL (80-94); Mean Platelet Volume 9.1 fL (7.4-10.4); Nucleated Red Blood Cells % 0.1; Platelet Count 345 10^3/uL (150-450); Red Blood Count 4.85 10^6 /uL (4.18-5.48); Red Cell Distribution Width 13 % (10-15); White Blood Count 12.6 10^3/uL (3.5-10.8)
[2021-12-28 16:52] LABS: INR 1.02 (0.86-1.15)
[2021-12-28 17:16] LABS: Albumin 4.9 g/dL (3.2-5.2); Albumin/Globulin Ratio 2.1 (1-3); Calcium 10.1 mg/dL (8.6-10.3); Globulin 2.3 g/dL (2-4); Potassium 4.2 mmol/L (3.5-5.0); Total Bilirubin 0.3 mg/dL (0.2-1.0); Total Protein 7.2 g/dL (6.4-8.9); eGFR CKD-EPI 107.7 (>60)
[2021-12-28 17:50] LABS: High Sensitivity Troponin 1 Hr 1859 pg/mL (<20)
[2021-12-28 18:12] LABS: Magnesium 2.2 mg/dL (1.9-2.7)
[2021-12-28 18:38] LABS: TSH Ultra Thyroid Stim Horm 2.58 mcIU/mL (0.34-5.60)
[2021-12-28] MEDS ORDERED: Heparin DRIP 25,000 UNITS BAG 25,000 UNITS/500 ML BAG IV SCH (19:00)
[2021-12-28] MEDS ORDERED: Heparin 5000 UNITS/ML 1 mL VIAL IV SCH (19:00)
[2021-12-28 19:19] LABS: ABS Basophils 0.1 10^3/ul (0-0.2); ABS Eosinophils 0.1 10^3/ul (0-0.6); ABS Lymphocytes 2.3 10^3/ul (1.0-4.8); ABS Neutrophils 9.5 10^3/ul (1.5-7.7); Eosinophil % 0.6 %; Hematocrit 42 % (42-52); Hemoglobin 14.4 g/dL (14.0-18.0); Lymphocyte % 18.1 %; Mean Corpuscular HGB Conc 35 g/dL (31-36); Mean Corpuscular Hemoglobin 31 pg (27-31); Mean Corpuscular Volume 88 fL (80-94); Mean Platelet Volume 9.1 fL (7.4-10.4); Nucleated Red Blood Cells % 0.1; Platelet Count 318 10^3/uL (150-450); Red Blood Count 4.71 10^6 /uL (4.18-5.48); Red Cell Distribution Width 13 % (10-15); White Blood Count 12.9 10^3/uL (3.5-10.8)
[2021-12-28 20:06] LABS: eGFR CKD-EPI 122.3 (>60)
[2021-12-28 21:00] LABS: Urine Benzodiazepine Screen None Detected (None Detect); Urine Cannabinoids Screen Presumptive Positive (None Detect); Urine Opiates Screen None Detected (None Detect)
[2021-12-29] MEDS: Heparin 5000 UNITS/ML 1 mL VIAL IV SCH ×4 (03:10→17:29)
[2021-12-29 09:14] LABS: ABS Basophils 0.1 10^3/ul (0-0.2); ABS Eosinophils 0.1 10^3/ul (0-0.6); ABS Monocytes 0.9 10^3/ul (0-0.8); Hematocrit 45 % (42-52); Hemoglobin 15.5 g/dL (14.0-18.0); Lymphocyte % 16.9 %; Mean Corpuscular HGB Conc 35 g/dL (31-36); Mean Corpuscular Hemoglobin 31 pg (27-31); Mean Corpuscular Volume 88 fL (80-94); Mean Platelet Volume 9.4 fL (7.4-10.4); Nucleated Red Blood Cells % 0.1; Platelet Count 314 10^3/uL (150-450); Red Blood Count 5.06 10^6 /uL (4.18-5.48); Red Cell Distribution Width 13 % (10-15)
[2021-12-29 09:57] LABS: Calcium 9.8 mg/dL (8.6-10.3); HDL Cholesterol 41.5 mg/dL; Magnesium 1.9 mg/dL (1.9-2.7); Potassium 4.1 mmol/L (3.5-5.0); eGFR CKD-EPI 125.6 (>60)
[2021-12-29] MEDS: Heparin DRIP 25,000 UNITS BAG 25,000 UNITS/500 ML BAG IV SCH (17:20)
[2021-12-30 06:32] LABS: ABS Eosinophils 0.2 10^3/ul (0-0.6); ABS Lymphocytes 2.1 10^3/ul (1.0-4.8); ABS Monocytes 0.8 10^3/ul (0-0.8); ABS Neutrophils 5.3 10^3/ul (1.5-7.7); Eosinophil % 2.6 %; Hematocrit 43 % (42-52); Hemoglobin 15.5 g/dL (14.0-18.0); Lymphocyte % 24.8 %; Mean Corpuscular HGB Conc 36 g/dL (31-36); Mean Corpuscular Hemoglobin 32 pg (27-31); Mean Corpuscular Volume 88 fL (80-94); Mean Platelet Volume 9.4 fL (7.4-10.4); Platelet Count 303 10^3/uL (150-450); Red Cell Distribution Width 13 % (10-15); White Blood Count 8.5 10^3/uL (3.5-10.8)
[2021-12-30 06:53] LABS: eGFR CKD-EPI 121.8 (>60)
[2021-12-30] MEDS: Heparin 5000 UNITS/ML 1 mL VIAL IV SCH ×2 (07:27→21:07)
[2021-12-30 08:28] LABS: Magnesium 2.1 mg/dL (1.9-2.7)
[2021-12-30] MEDS: Heparin DRIP 25,000 UNITS BAG 25,000 UNITS/500 ML BAG IV SCH ×2 (09:43→23:19)
[2021-12-30 12:09] LABS: Urine Appearance Clear; Urine Bilirubin Negative (Negative); Urine Blood Negative (Negative); Urine Color Yellow; Urine Glucose 2+(150 mg/dL) (Negative); Urine Ketones Trace (Negative); Urine Nitrite Negative (Negative); Urine Protein Negative (Negative); Urine Specific Gravity 1.014 (1.002-1.030); Urine Urobilinogen Negative (Negative)
[2021-12-30 12:10] LABS: UR Microalbumin (mg/L) 16.2 mg/L; Urine Creatinine 118.38 mg/dL; Urine Microalbumin/Creatinine 13.6 (<31)
[2021-12-31 02:49] LABS: ABS Basophils 0.1 10^3/ul (0-0.2); ABS Eosinophils 0.3 10^3/ul (0-0.6); ABS Lymphocytes 2.8 10^3/ul (1.0-4.8); ABS Monocytes 1.1 10^3/ul (0-0.8); Eosinophil % 2.4 %; Hematocrit 45 % (42-52); Lymphocyte % 22.6 %; Mean Corpuscular HGB Conc 36 g/dL (31-36); Mean Corpuscular Hemoglobin 31 pg (27-31); Mean Corpuscular Volume 87 fL (80-94); Mean Platelet Volume 9.2 fL (7.4-10.4); Nucleated Red Blood Cells % 0.2; Platelet Count 314 10^3/uL (150-450); Red Blood Count 5.16 10^6 /uL (4.18-5.48); Red Cell Distribution Width 13 % (10-15); White Blood Count 12.3 10^3/uL (3.5-10.8)
[2021-12-31] MEDS: Heparin 5000 UNITS/ML 1 mL VIAL IV SCH (03:28)
[2021-12-31 03:49] LABS: Magnesium 2.1 mg/dL (1.9-2.7); Potassium 4.1 mmol/L (3.5-5.0); eGFR CKD-EPI 120.1 (>60)
[2021-12-31] MEDS ORDERED: diPHENhydraMINE 25 mg TAB PO PRN (08:31)
[2021-12-31] MEDS ORDERED: Midazolam 5 mg/5 ml VIAL 1 mg/ml 5 ml VIAL (5 mg) ONE (08:36)
[2021-12-31] MEDS ORDERED: Iohexol 350 (CONTRAST) 200 ML MDV IV ONE ×3 (08:36→10:36)
[2021-12-31] MEDS ORDERED: Heparin 2 UNITS/ML 1000 mls 2,000 ML IV ONE ×2 (08:36→11:10)
[2021-12-31] MEDS ORDERED: fentaNYL 100 mcg/2 ml 50 MCG/ML VIAL ONE ×2 (08:36→12:09)
[2021-12-31] MEDS ORDERED: Heparin 1,000 UNIT/ML 10 ml (10,000 UNITS) CATHLAB/DIALYSIS ONE (08:37)
[2021-12-31] MEDS ORDERED: nitroGLYCERIN DRIP (PHA MIX) 25,000 MCG/250 ML BAG ONE (08:37)
[2021-12-31] MEDS ORDERED: EPINEPHrine SYR 0.1MG/ML 10 ml SYRINGE ONE (08:53)
[2021-12-31] MEDS ORDERED: Lidocaine 1% MPF 5 ML VIAL ONE (08:54)
[2021-12-31] MEDS ORDERED: VERAPAMIL 2.5 MG/ML 2 ML VIAL ** 5 mg/2 ml ONE (09:02)
[2021-12-31] MEDS ORDERED: Amiodarone IV 150 mg/3 ml VIAL ONE (09:02)
[2021-12-31] MEDS ORDERED: Heparin 2 UNITS/ML 1000 mls 1,000 ML IV ONE (09:11)
[2021-12-31] MEDS ORDERED: Amiodarone 360 MG IVPREMIX 0 MG/0 ML BAG IV ONE (09:15)
[2021-12-31] MEDS ORDERED: Magnesium Sulfate 2 gm BAG 0 GM/0 ML BAG ONE (09:16)
[2021-12-31] MEDS ORDERED: Amiodarone 150 mg IVPREMIX 0 MG/0 ML BAG IV ONE (09:16)
[2021-12-31] MEDS ORDERED: Magnesium Sulfate IV 0.5 GM/ML 2 ml VIAL (1 gm) ONE (09:17)
[2021-12-31] MEDS ORDERED: Succinylcholine 200 mg VIAL 20 mg/ml 10 ml VIAL (200 mg) ONE (09:29)
[2021-12-31] MEDS ORDERED: Rocuronium 50 mg VIAL 10 mg/ml 5 ml VIAL (50 mg) ONE ×2 (09:30→11:06)
[2021-12-31] MEDS ORDERED: Bivalirudin 250 MG VIAL ONE ×2 (09:31→09:57)
[2021-12-31] MEDS ORDERED: Metoprolol Tartrate 5 mg VIAL 5 ml VIAL (1 mg/ml) ONE (10:56)
[2021-12-31] MEDS ORDERED: Propofol 10 MG/ML 20 ML BTL ONE (11:19)
[2021-12-31] MEDS ORDERED: Phenylephrine 40 mcg/mL 10mL (400mcg) SYRINGE ONE (11:28)
[2021-12-31] MEDS ORDERED: NS 0.9% 1000 ml BAG 1,000 ML IV SCH (11:30)
[2021-12-31] MEDS ORDERED: Furosemide 20 mg/2 ml IV VIAL IV ONE (11:35)
[2021-12-31] MEDS ORDERED: Propofol 10 mg/ml 100 ML BTL 100 ML ONE (11:54)
[2021-12-31] MEDS ORDERED: Propofol 10 mg/ml 100 ML BTL 100 ML IV SCH (12:00)
[2021-12-31] MEDS ORDERED: fentaNYL 100 mcg/2 ml 50 MCG/ML VIAL IV SLOW PU ONE (12:13)
[2021-12-31] MEDS: Heparin DRIP 25,000 UNITS BAG 25,000 UNITS/500 ML BAG IV SCH (12:23)
[2021-12-31 13:22] LABS: Hematocrit 43 % (42-52); Hemoglobin 14.9 g/dL (14.0-18.0); Mean Corpuscular HGB Conc 34 g/dL (31-36); Mean Corpuscular Hemoglobin 31 pg (27-31); Mean Corpuscular Volume 89 fL (80-94); Mean Platelet Volume 9.5 fL (7.4-10.4); Platelet Count 348 10^3/uL (150-450); Red Blood Count 4.87 10^6 /uL (4.18-5.48); Red Cell Distribution Width 13 % (10-15); White Blood Count 20.3 10^3/uL (3.5-10.8)
[2021-12-31] MEDS: Propofol 10 mg/ml 100 ML BTL 100 ML IV SCH ×5 (13:39→22:34)
[2021-12-31 13:42] LABS: Activated Partial Thrombo Time 96.6 seconds (26.0-38.0); INR 1.33 (0.86-1.15)
[2021-12-31] MEDS ORDERED: Norepinephrine 16MCG/ML BAGD5W 4,000 MCG/250 ML BAG IV ONE (13:45)
[2021-12-31] MEDS: Norepinephrine 16MCG/ML BAGD5W 4,000 MCG/250 ML BAG IV SCH (13:50)
[2021-12-31 14:03] LABS: ABS Lymphocytes 0.7 10^3/ul (1.0-4.8); ABS Monocytes 1.6 10^3/ul (0-0.8); Lymphocyte % 3.4 %
[2021-12-31 14:23] LABS: Albumin 4.3 g/dL (3.2-5.2); Calcium 8.5 mg/dL (8.6-10.3); Magnesium 2.2 mg/dL (1.9-2.7); Total Bilirubin 0.7 mg/dL (0.2-1.0)
[2021-12-31 14:24] LABS: Potassium 5.1 mmol/L (3.5-5.0)
[2021-12-31 14:28] LABS: Phosphorus 5.1 mg/dL (2.5-5.0); Total Protein 6.3 g/dL (6.4-8.9); eGFR CKD-EPI 79.7 (>60)
[2021-12-31 14:29] LABS: Albumin/Globulin Ratio 2.2 (1-3)
[2021-12-31 16:08] LABS: Urine Appearance Cloudy; Urine Bilirubin Negative (Negative); Urine Blood 3+ (Negative); Urine Color Yellow; Urine Glucose 2+(150 mg/dL) (Negative); Urine Ketones Negative (Negative); Urine Nitrite Negative (Negative); Urine Protein 1+(30 mg/dL) (Negative); Urine Urobilinogen Negative (Negative)
[2021-12-31 16:24] LABS: Urine Amorphous Crystals Present (Absent); Urine Bacteria 1+ (Absent); Urine Red Blood Cell 3+(>10/hpf) (Absent); Urine Squamous Epithelial Cell Present (Absent); Urine White Blood Cell 3+(>20/hpf) (Absent)
[2021-12-31 17:43] LABS: Urine Specific Gravity > 1.030 (1.002-1.030)
[2021-12-31] MEDS: Chlorhexidine MOUTHWASH 0.12% 15 ML UDC SWISH SPIT SCH ×2 (17:57→23:36)
[2021-12-31] MEDS: Pantoprazole VIAL 40 MG VIAL IV SCH (17:57)
[2021-12-31] MEDS ORDERED: Piperacillin/Tazobac ADVAN 3.375 GM in NS 0.9% 100 ml BAG 100 ML IV ONE (18:26)
[2021-12-31] MEDS ORDERED: Zosyn per Pharmacy NOTE FOLLOW UP SCH (19:00)
[2021-12-31 20:14] LABS: Hematocrit 44 % (42-52); Hemoglobin 15.3 g/dL (14.0-18.0); Mean Corpuscular HGB Conc 35 g/dL (31-36); Mean Corpuscular Hemoglobin 30 pg (27-31); Mean Corpuscular Volume 88 fL (80-94); Mean Platelet Volume 9.1 fL (7.4-10.4); Platelet Count 397 10^3/uL (150-450); Red Blood Count 5.05 10^6 /uL (4.18-5.48); Red Cell Distribution Width 13 % (10-15); White Blood Count 20.6 10^3/uL (3.5-10.8)
[2021-12-31 20:37] LABS: ABS Lymphocytes 1.3 10^3/ul (1.0-4.8); ABS Monocytes 1.8 10^3/ul (0-0.8); ABS Neutrophils 17.4 10^3/ul (1.5-7.7); ABS Nucleated RBC 0.1 10^3/ul; Lymphocyte % 6.3 %; Nucleated Red Blood Cells % 0.5
[2021-12-31] MEDS: Acetaminophen IV 1 GM/100ML 100 ML IV SCH (20:42)
[2021-12-31 20:52] LABS: High Sens Troponin Baseline > 24000 pg/mL (<20)
[2021-12-31] MEDS: Linezolid 600 MG IVPREMIX(*) 600 MG/300 ML BAG IVPB SCH (21:16)
[2021-12-31 21:25] LABS: ALT 257 U/L (7-52); AST 528 U/L (13-39); Albumin 4.3 g/dL (3.2-5.2); Alkaline Phosphatase 76 U/L (35-149); Anion Gap 11 mmol/L (2-11); Blood Urea Nitrogen 17 mg/dL (6-24); CO2 Carbon Dioxide 23 mmol/L (22-32); Calcium 9.5 mg/dL (8.6-10.3); Chloride 104 mmol/L (101-111); Globulin 2.1 g/dL (2-4); Glucose 179 mg/dL (70-100); Potassium 4.4 mmol/L (3.5-5.0); Sodium 138 mmol/L (135-145); Total Protein 6.4 g/dL (6.4-8.9); eGFR CKD-EPI 102.7 (>60)
[2021-12-31 21:45] LABS: High Sensitivity Troponin 1 Hr > 24000 pg/mL (<20)
[2022-01-01] MEDS: Norepinephrine 16MCG/ML BAGD5W 4,000 MCG/250 ML BAG IV SCH (00:16)
[2022-01-01] MEDS: Propofol 10 mg/ml 100 ML BTL 100 ML IV SCH ×6 (00:57→11:27)
[2022-01-01] MEDS: Heparin DRIP 25,000 UNITS BAG 25,000 UNITS/500 ML BAG IV SCH (01:00)
[2022-01-01] MEDS: ZOSYN 3.375 GM Q8H per EXTENDED INFUSION IV SCH ×3 (01:17→16:23)
[2022-01-01] MEDS ORDERED: Magnesium Sulfate 2 gm BAG 2 GM/50 ML BAG IVPB ONE (01:37)
[2022-01-01] MEDS: Chlorhexidine MOUTHWASH 0.12% 15 ML UDC SWISH SPIT SCH ×4 (02:12→13:49)
[2022-01-01] MEDS: Acetaminophen IV 1 GM/100ML 100 ML IV SCH ×4 (03:22→22:14)
[2022-01-01 05:59] LABS: Hematocrit 46 % (42-52); Hemoglobin 15.5 g/dL (14.0-18.0); Mean Corpuscular HGB Conc 34 g/dL (31-36); Mean Corpuscular Hemoglobin 31 pg (27-31); Mean Corpuscular Volume 90 fL (80-94); Mean Platelet Volume 9.6 fL (7.4-10.4); Platelet Count 353 10^3/uL (150-450); Red Blood Count 5.08 10^6 /uL (4.18-5.48); Red Cell Distribution Width 13 % (10-15); White Blood Count 19.3 10^3/uL (3.5-10.8)
[2022-01-01 06:18] LABS: ABS Lymphocytes 2.1 10^3/ul (1.0-4.8); ABS Monocytes 1.9 10^3/ul (0-0.8); ABS Neutrophils 15.3 10^3/ul (1.5-7.7); Eosinophil % 0.2 %; Lymphocyte % 10.9 %; Nucleated Red Blood Cells % 0.1
[2022-01-01 06:19] LABS: ALT 226 U/L (7-52); Albumin 4.4 g/dL (3.2-5.2); Albumin/Globulin Ratio 1.7 (1-3); Alkaline Phosphatase 81 U/L (35-149); Blood Urea Nitrogen 16 mg/dL (6-24); CO2 Carbon Dioxide 19 mmol/L (22-32); Calcium 9.3 mg/dL (8.6-10.3); Chloride 106 mmol/L (101-111); Cholesterol 251 mg/dL; Globulin 2.6 g/dL (2-4); Glucose 207 mg/dL (70-100); HDL Cholesterol 36.3 mg/dL; Magnesium 2.8 mg/dL (1.9-2.7); Sodium 141 mmol/L (135-145); Triglycerides 604 mg/dL; eGFR CKD-EPI 119.7 (>60)
[2022-01-01 06:36] LABS: LDL Cholesterol Direct 177 mg/dL
[2022-01-01 06:38] LABS: Anion Gap 16 mmol/L (2-11)
[2022-01-01] MEDS ORDERED: Perflutren Lipid Microsphere 3 ML VIAL ONE (07:47)
[2022-01-01] MEDS: Linezolid 600 MG IVPREMIX(*) 600 MG/300 ML BAG IVPB SCH ×2 (09:02→19:59)
[2022-01-01 09:07] LABS: Potassium Redraw 4.1 mmol/L (3.5-5.0)
[2022-01-01 13:12] LABS: PCO2 Arterial 32 mmHg (35-45); PO2 Arterial 93 mmHg (80-100)
[2022-01-01] MEDS ORDERED: Metoprolol Tartrate 5 mg VIAL 5 ml VIAL (1 mg/ml) IV ONE (16:34)
[2022-01-01] MEDS: Pantoprazole VIAL 40 MG VIAL IV SCH (17:59)
[2022-01-01] MEDS: Heparin 5000 UNITS/ML 1 mL VIAL SUBCUT SCH (19:59)
[2022-01-02] MEDS: ZOSYN 3.375 GM Q8H per EXTENDED INFUSION IV SCH ×3 (01:47→15:58)
[2022-01-02] MEDS: Acetaminophen IV 1 GM/100ML 100 ML IV SCH (04:23)
[2022-01-02 04:36] LABS: ABS Basophils 0.1 10^3/ul (0-0.2); ABS Eosinophils 0.1 10^3/ul (0-0.6); ABS Monocytes 1.4 10^3/ul (0-0.8); ABS Neutrophils 10.7 10^3/ul (1.5-7.7); Eosinophil % 0.9 %; Hematocrit 36 % (42-52); Hemoglobin 12.7 g/dL (14.0-18.0); Lymphocyte % 13.8 %; Mean Corpuscular HGB Conc 35 g/dL (31-36); Mean Corpuscular Hemoglobin 31 pg (27-31); Mean Corpuscular Volume 88 fL (80-94); Mean Platelet Volume 9.5 fL (7.4-10.4); Platelet Count 273 10^3/uL (150-450); Red Blood Count 4.12 10^6 /uL (4.18-5.48); Red Cell Distribution Width 13 % (10-15); White Blood Count 14.2 10^3/uL (3.5-10.8)
[2022-01-02 04:55] LABS: Calcium 8.8 mg/dL (8.6-10.3); Potassium 3.7 mmol/L (3.5-5.0); eGFR CKD-EPI 122.4 (>60)
[2022-01-02] MEDS: Linezolid 600 MG IVPREMIX(*) 600 MG/300 ML BAG IVPB SCH ×2 (07:28→20:24)
[2022-01-02] MEDS: Heparin 5000 UNITS/ML 1 mL VIAL SUBCUT SCH ×2 (07:30→20:25)
[2022-01-02] MEDS ORDERED: KCL 20 MEQ/100 ML IVPREMIX 20 MEQ/100 ML BAG IV ONE (08:41)
[2022-01-02] MEDS ORDERED: Ondansetron 4 mg VIAL 2 MG/ML 2 ml VIAL IV PRN (10:41)
[2022-01-02] MEDS ORDERED: Ondansetron 4 mg VIAL 2 MG/ML 2 ml VIAL IV ONE (10:42)
[2022-01-02] MEDS ORDERED: Prochlorperazine 5 mg/ml 2 ml VIAL (10 mg) IV ONE (10:45)
[2022-01-02] MEDS: Pantoprazole VIAL 40 MG VIAL IV SCH (18:15)
[2022-01-03] MEDS ORDERED: Benzocaine/Menthol LOZ PO ONE (00:09)
[2022-01-03] MEDS: ZOSYN 3.375 GM Q8H per EXTENDED INFUSION IV SCH ×2 (00:22→10:22)
[2022-01-03 06:27] LABS: ABS Basophils 0.1 10^3/ul (0-0.2); ABS Eosinophils 0.2 10^3/ul (0-0.6); ABS Lymphocytes 1.8 10^3/ul (1.0-4.8); ABS Monocytes 1.1 10^3/ul (0-0.8); ABS Neutrophils 7.9 10^3/ul (1.5-7.7); Eosinophil % 2.2 %; Hematocrit 36 % (42-52); Hemoglobin 12.5 g/dL (14.0-18.0); Lymphocyte % 15.9 %; Mean Corpuscular HGB Conc 35 g/dL (31-36); Mean Corpuscular Hemoglobin 30 pg (27-31); Mean Corpuscular Volume 87 fL (80-94); Mean Platelet Volume 9.3 fL (7.4-10.4); Nucleated Red Blood Cells % 0.1; Platelet Count 284 10^3/uL (150-450); Red Blood Count 4.14 10^6 /uL (4.18-5.48); Red Cell Distribution Width 13 % (10-15); White Blood Count 11.1 10^3/uL (3.5-10.8)
[2022-01-03 06:53] LABS: Calcium 9.2 mg/dL (8.6-10.3); Potassium 3.9 mmol/L (3.5-5.0); eGFR CKD-EPI 122.4 (>60)
[2022-01-03] MEDS: Heparin 5000 UNITS/ML 1 mL VIAL SUBCUT SCH (08:20)
[2022-01-03] MEDS: Linezolid 600 MG IVPREMIX(*) 600 MG/300 ML BAG IVPB SCH (08:45)
[2022-01-03 13:03] VITALS: BP 129/75
== END 2022-01-03 15:45 | disposition home or self-care (01) | DRG 174 ==
LOC: ED 15:52 → SUATTDRO 19:46 → EDHOLD 19:46 → MEDTELE 20:43 → ICU 12-31 11:52 → MEDTELE 01-02 17:30
PROVIDERS: ADMIT Internal Medicine; ATTEND Internal Medicine